=== PATIENT | female | born 1980 | race Hispanic/Latino ===

== ENCOUNTER 2017-04-11 17:49 | Emergency (ER) | payer SELFPAY ==
[~2017-04-11] VITALS: Ht 175.3 cm; Wt 99.8 kg
[2017-04-11] MEDS ORDERED: MAGNESIUM/ALUMINUM/SIMETHICONE 30 ML UDC PO ONE (18:15)
[2017-04-11] MEDS ORDERED: BELLADONNA ALK/PHENOBARBITAL 5 ML UDC PO ONE (18:15)
[2017-04-11] MEDS ORDERED: SODIUM CHLORIDE 0.9% 1000ML 1,000 ML IV STA (18:15)
[2017-04-11] MEDS ORDERED: ONDANSETRON HCL INJ 2 MG/ML VIAL IV STA (18:15)
[2017-04-11] MEDS ORDERED: MORPHINE SULFATE 4 MG/ML SYR IV STA (18:15)
[2017-04-11] MEDS ORDERED: LIDOCAINE VISC 2% SOLN 15 ML UDC PO ONE (18:15)
[2017-04-11] MEDS ORDERED: LIDOCAINE VISC 2% SOLN 15 ML UDC ONE (18:21)
[2017-04-11] MEDS ORDERED: MAGNESIUM/ALUMINUM/SIMETHICONE 30 ML UDC ONE (18:22)
[2017-04-11] MEDS ORDERED: BELLADONNA ALK/PHENOBARBITAL 5 ML UDC ONE (18:22)
[2017-04-11] MEDS ORDERED: DIATRIZOATE MEGL/DIATRIZOA SOD 30 ML BTL PO ONE (19:05)
[2017-04-11 19:23] LABS: BASOPHILS # (AUTO) 0.1 (0.0-0.1); BASOPHILS % 0.5 % (0.0-1.0); EOSINOPHILS # (AUTO) 0.6 (0.0-0.4); EOSINOPHILS % 4.7 % (0.0-6.0); HEMATOCRIT 41.9 % (34.2-44.1); LYMPHOCYTES # (AUTO) 3.2 (1.0-3.2); LYMPHOCYTES % 24.4 % (18.0-39.1); MEAN CORPUSCULAR HEMOGLOBIN 32.6 pg (28-32); MEAN CORPUSCULAR HGB CONC 33.4 g/dL (31-35); MEAN CORPUSCULAR VOLUME 97.4 fL (81-99); MONOCYTES # (AUTO) 0.8 (0.2-0.8); MONOCYTES % 6.5 % (4.4-11.3); NEUTROPHILS # (AUTO) 8.3 (2.1-6.9); NEUTROPHILS % 63.5 % (38.7-80.0); PLATELET COUNT 260 x10e3/uL (140-360); RED CELL DISTRIBUTION WIDTH 13.7 % (11.7-14.4)
[2017-04-11 19:58] LABS: ALANINE AMINOTRANSFERASE 28 IU/L (0-55); ALBUMIN 3.8 g/dL (3.5-5.0); ALBUMIN/GLOBULIN RATIO 0.9 (0.8-2.0); ALKALINE PHOSPHATASE 70 IU/L (40-150); AMYLASE 33 U/L (25-125); ANION GAP 14.7 mmol/L (8-16); BLOOD UREA NITROGEN 9 mg/dL (7-26); BUN/CREATININE RATIO 12 (6-25); CALCIUM 9.5 mg/dL (8.4-10.2); CARBON DIOXIDE 24 mmol/L (22-29); CHLORIDE 105 mmol/L (98-107); CREATINE KINASE 188 IU/L (29-168); CREATININE, SERUM 0.75 mg/dL (0.57-1.11); EST GLOMERULAR FILTRATION RATE > 60 ML/MIN (60-); GLUCOSE 110 mg/dL (74-118); LIPASE 11 U/L (8-78); POTASSIUM 3.7 mmol/L (3.5-5.1); SODIUM 140 mmol/L (136-145)
[2017-04-11 20:04] LABS: TROPONIN I 0.004 ng/mL (0-0.300)
--- NOTE | 2017-04-11 20:32 | Diagnostic Imaging Report ---
EXAM: Right Upper Quadrant Ultrasound INDICATION: \S\ABD PAIN \S\[id number] \S\1941 \S\Y COMPARISON: None available. TECHNIQUE: Transverse and longitudinal images of the right upper abdomen were obtained. FINDINGS: Exam limited by patient's large body habitus. Liver: Size: 19.2 cm in the right midclavicular line, enlarged Appearance: Increased echogenicity, smooth contour Mass: No focal masses Gallbladder: Stones/Sludge: No stones or sludge.. Wall: 0.3 cm Appearance: No wall thickening, pericholecystic fluid or hydrops. Sonographic Victoria's Sign: Negative Bile Ducts: Intrahepatic Ducts: No dilatation Extrahepatic Ducts: Common bile duct measures 0.9 cm, mildly dilated. Pancreas: Obscured. Kidneys: Length: Right 12.1 cm Echogenicity: Normal Collecting System: No hydronephrosis Stone: None Cyst/Mass: None Vessels: Aorta: Visualized portions are normal Inferior Vena Cava: Visualized portions are normal Main Portal Vein: 1.4 cm, normal size with hepatopetal flow. Free Fluid: No ascites or pleural effusion IMPRESSION: 1. Limited exam due to patient's large body habitus. No sonographic evidence of cholelithiasis or cholecystitis. 2. Hepatomegaly with diffuse fatty infiltration. No focal lesions. 3. Mild dilation of the common bile duct. No intrahepatic biliary ductal dilation. Consider MRI abdomen/MRCP if there is clinical concern for choledocholithiasis. Signed by: Dr. Rk Reyes M.D. on 04/11/2017 8:29 PM
--- NOTE | 2017-04-11 20:54 | Diagnostic Imaging Report ---
EXAMINATION: CT of the abdomen and pelvis with contrast. TECHNIQUE: Spiral CT images of the abdomen and pelvis were performed from the lung bases to the lesser trochanters after the intravenous administration of 100 cc of Isovue 370 and the oral administration of dilute Gastrografin. Coronal and sagittal reformatted images were obtained. COMPARISON: No prior CT. Right upper quadrant ultrasound 04/11/2017. CLINICAL HISTORY:Severe stomach pain DISCUSSION: ABDOMEN/PELVIS: LOWER THORAX:Unremarkable. HEPATOBILIARY: Diffuse hepatic steatosis. No focal hepatic lesions. No intrahepatic biliary ductal dilation. Common bile duct measures approximately 6 mm at the sean hepatis. GALLBLADDER: No radio-opaque stones or sludge. No wall thickening. SPLEEN: No splenomegaly. PANCREAS: No focal masses or ductal dilatation. No surrounding fat stranding/inflammatory changes, free fluid or well-defined fluid collections. ADRENALS: No adrenal nodules. KIDNEYS/URETERS: No hydronephrosis, stones, or solid mass lesions. PELVIC ORGANS/BLADDER: Bladder and uterus are unremarkable. No adnexal masses. PERITONEUM/RETROPERITONEUM: No free air or fluid. LYMPH NODES: No intra-abdominal, retroperitoneal, pelvic or inguinal lymphadenopathy. VESSELS: The celiac trunk,superior and inferior mesenteric and bilateral renal arteries are patent The portal, superior mesenteric and splenic veins are patent. GI TRACT: No bowel dilation or evidence of obstruction. No pericolonic inflammatory changes. Appendix is well identified and normal in caliber. No diverticulosis or diverticulitis. BONES AND SOFT TISSUE: No aggressive lytic lesions. No soft tissue abnormalities. IMPRESSION: 1. No acute abdominal pelvic abnormalities. 2. Unremarkable appearance of the pancreas and bowel. 3. Diffuse hepatic steatosis without focal lesions. 4. Common bile duct is normal in caliber on CT, without radiopaque intraluminal filling defects. Signed by: Dr. Rk Reyes M.D. on 04/11/2017 8:51 PM
[2017-04-11] MEDS ORDERED: DICYCLOMINE HCL 20 MG/2 ML VIAL IM ONE (21:00)
[2017-04-11] MEDS ORDERED: FAMOTIDINE 20 MG TAB PO ONE (21:00)
[2017-04-11] MEDS ORDERED: SODIUM CHLORIDE 0.9% 50ML 50 ML ONE (21:01)
[2017-04-11] MEDS ORDERED: IOPAMIDOL 370 MG/ML 200 ML INFUS..BTL INJ ONE (21:02)
[2017-04-11] MEDS ORDERED: ONDANSETRON HCL INJ 2 MG/ML VIAL ONE (21:28)
[2017-04-11] MEDS ORDERED: MORPHINE SULFATE 2 MG/ML SYR ONE (21:28)
[2017-04-11] MEDS ORDERED: PEPCID20 MG PO (21:41)
[2017-04-11] MEDS ORDERED: BENTYL10 MG/1 ML PO (21:41)
[2017-04-11] MEDS ORDERED: SODIUM CHLORIDE 0.9% 1000ML 1,000 ML ONE (22:32)
[2017-04-11 22:33] LABS: BILIRUBIN,URINE NEGATIVE (NEGATIVE); CLARITY,URINE CLEAR (CLEAR); COLOR,URINE YELLOW (YELLOW); KETONES,URINE NEGATIVE (NEGATIVE); LEUKOCYTE ESTERASE ,URINE NEGATIVE (NEGATIVE); NITRITE,URINE NEGATIVE (NEGATIVE); PROTEIN,URINE DIPSTICK NEGATIVE (NEGATIVE); URINE UROBILINOGEN 0.2 mg/dL (0.2 - 1)
[2017-04-11] MEDS ORDERED: PROMETHAZINE 12.5MG/ NACL 0.9% 12.5 MG/50 ML BAG IV ONE (22:45)
[2017-04-11 22:48] LABS: BACTERIA,URINE FEW /HPF; EPITHELIAL CELLS,URINE FEW /LPF; RBC,URINE 0-5 /HPF (0-5); WBC,URINE (MAN) 0-5 /HPF (0-5)
[2017-04-11 23:12] VITALS: BP 114/72
[2017-04-11] MEDS ORDERED: PROMETHAZINE12.5 M1 PO (23:12)
== END 2017-04-11 23:32 | disposition home or self-care (01) ==
LOC: ER 17:49
DX: R10.13 Epigastric pain (principal); R11.2 Nausea with vomiting, unspecified; R19.7 Diarrhea, unspecified
CPT/HCPCS: 36415; 74177; 76705; 80053; 81001; 82150; 82550; 82553; 83690; 84484; 84702; 85025; 87086; 96374; 99284; J0500; J2270; J2405; J2550; J7030; Q9967